=== PATIENT | female | born 1985 | race Caucasian/White ===

== ENCOUNTER 2021-12-17 14:03 | Emergency (ER) | payer MEDICARE, OTHER ==
[2021-12-17 15:11] LABS: HEMOGLOBIN 11.6 gm/dl (12.3-15.3); RED BLOOD COUNT 4.46 M/UL (4.00-5.10); WHITE BLOOD COUNT 9.3 K/UL (4.5-11.0)
[2021-12-17 15:37] LABS: BUN/CREATININE RATIO 13 (0-10)
== END 2021-12-17 21:05 | disposition short-term general hospital (02) ==
LOC: ER1 14:03
PROVIDERS: Nurse Practitioner
DX: N13.2 Hydronephrosis with renal and ureteral calculous obstruction (principal); R00.0 Tachycardia, unspecified; Z20.822 Contact with and (suspected) exposure to COVID-19; E10.9 Type 1 diabetes mellitus without complications; F17.210 Nicotine dependence, cigarettes, uncomplicated; Z91.040 Latex allergy status; Z88.4 Allergy status to anesthetic agent
CPT/HCPCS: 0240U; 36600; 51701; 71045; 80053; 81001; 82803; 82962; 83605; 85025; 87040; 87086; 93005; 96374; 96375; 99285; J0696; J2270; J2405

== ENCOUNTER 2022-04-27 12:36 | Emergency (ER) | payer MEDICARE, OTHER ==
[~2022-04-27] VITALS: Ht 134.6 cm; Wt 78.0 kg
[2022-04-27 13:58] LABS: HEMOGLOBIN 11.6 gm/dl (12.3-15.3); RED BLOOD COUNT 4.25 M/UL (4.00-5.10); WHITE BLOOD COUNT 18.6 K/UL (4.5-11.0)
[2022-04-27 14:26] LABS: BUN/CREATININE RATIO 12 (0-10)
[2022-04-28] MEDS ORDERED: HYDROCODON-ACE1 EAC6 PO (14:56)
[2022-04-28] MEDS ORDERED: SYMBICORT 16010.2 GM INH (14:57)
[2022-04-28] MEDS ORDERED: KLONOPIN0.5 MG PO (14:57)
[2022-04-28] MEDS ORDERED: GLIPIZIDE5 MG PO (14:58)
== END 2022-04-28 19:16 | disposition short-term general hospital (02) ==
LOC: ER1 12:36
PROVIDERS: Physician Assistant
DX: A41.9 Sepsis, unspecified organism (principal); N13.6 Pyonephrosis; E11.9 Type 2 diabetes mellitus without complications; F17.210 Nicotine dependence, cigarettes, uncomplicated; Z87.798 Personal history of other (corrected) congenital malformations; Z87.442 Personal history of urinary calculi; Z86.69 Personal history of other diseases of the nervous system and sense organs; Z91.040 Latex allergy status; Z88.4 Allergy status to anesthetic agent; Z20.822 Contact with and (suspected) exposure to COVID-19
CPT/HCPCS: 36600; 71045; 80053; 81001; 82803; 82962; 83605; 83690; 83880; 84703; 85025; 87040; 87077; 87086; 87186; 93005; 96361; 96365; 96367; 96375; 96376; 99285; J0696; J1885; J2185; J2270; J2405; J3370; J7030; U0002

== ENCOUNTER → 2022-06-04 | Outpatient (CLI) | payer MEDICARE, OTHER ==
[~2022-06-04] MED LIST: GLIPIZIDE5 MG PO; HYDROCODON-ACE1 EAC6 PO; KLONOPIN0.5 MG PO; SYMBICORT 16010.2 GM INH
== END ==
LOC: KOH-I 14:33
DX: N15.1 Renal and perinephric abscess (principal); N20.0 Calculus of kidney; K59.00 Constipation, unspecified
CPT/HCPCS: 74176